=== PATIENT | female | born 1960 | race Caucasian/White ===

== ENCOUNTER 2016-11-28 09:59 | Emergency (ER) | payer SELFPAY ==
[~2016-11-28] VITALS: Ht 170.2 cm; Wt 115.0 kg
[~2016-11-28 09:59] MED LIST: Z.0.NO CURRENT MEDS
[2016-11-28 10:01] VITALS: BP 146/71; PULSE 81; RESP 18; TEMP 97.7; O2SAT 97
[2016-11-28] MEDS ORDERED: IBUP800T23 PO (10:35)
[2016-11-28] MEDS ORDERED: ROBA500T PO (10:35)
--- NOTE | 2016-11-28 10:35 | PD ---
HPI Chief Complaint: Back/ Neck Pain or Injury Time Seen by Provider: 10:32 Travel History International Travel<30 days: No Contact w/Intl Traveler<30days: No Traveled to known affect area: No History of Present Illness HPI 56-year-old female presents emergency Department with complaint of left upper back pain on and off for the past couple weeks. Denies injury. Says she's been moving, painting, lifting heavy objects. Denies IV drug use or cancer. Denies fever, vomiting. Denies chest pain, shortness of breath, abdominal pain. Pain is reproducible to the left upper trapezius muscle on palpation. She says the pain radiates from her left ear all the way down to her left toes. Pain is aggravated with movement of the left shoulder and twisting her neck. She has tried massage, topical muscle ointments, and other [id number] remedies for symptom management. Allergies to sulfa. Denies anticoagulant. Has no other medical complaints. No other modifying factors or associated signs and symptoms. PFSH Past Medical History Asthma: No Autoimmune Disease: No Anxiety: Yes COPD: No Diminished Hearing: No Gastrointestinal Disorders: Yes (COLITIS) Tetanus Vaccination: Unknown ?: Not Past Surgical History Cholecystectomy: Yes Social History Alcohol Use: No Tobacco Use: No Substance Use: No Allergies-Medications (Allergen,Severity, Reaction): Coded Allergies: Sulfa (Verified Allergy, Severe, 11/28/16) Reported Meds & Prescriptions Reported Meds & Active Scripts Active Ibuprofen 800 Mg Tab 800 Mg PO Q8H PRN Robaxin (Methocarbamol) 500 Mg Tab 500 Mg PO QID PRN Review of Systems Except as stated in HPI: all other systems reviewed are Neg Physical Exam Narrative GENERAL: Well-nourished, well-developed female patient, in no acute distress; afebrile, nontoxic-appearing SKIN: Warm and dry. HEAD: Atraumatic. Normocephalic. EYES: Pupils equal and round. No scleral icterus. No injection or drainage. ENT: Mucosa pink and moist. Airway patent. NECK: Supple, nontender. Trachea midline. No lymphadenopathy. Moving freely. No midline point tenderness on palpation of the cervical spine. Active rotation greater than 45 left and right. Reproducible tenderness to the left lateral musculature of the neck. CARDIOVASCULAR: Regular rate. RESPIRATORY: No accessory muscle use. GASTROINTESTINAL: Obese. MUSCULOSKELETAL: Left upper arm supple and non-tense 2+ radial pulses and sensory intact; full strength and shirt bander strength. Ambulatory in room with normal gait. Sitting up in bed at 90. No obvious deformities. No clubbing. No cyanosis. No edema. BACK: No midline midline point tenderness on palpation of the thoracic spine. Tenderness on palpation of left upper trapezius muscle area over the scapula. No obvious deformities. NEUROLOGICAL: Awake and alert. Oriented 3. No obvious cranial nerve deficits. Motor grossly within normal limits. Normal speech. Moves all extremities. 5/5 strength to all extremities. Sensory intact. PSYCHIATRIC: Appropriate mood and affect; insight and judgment normal. Data Data Last Documented VS Vital Signs Date Time Temp Pulse Resp B/P Pulse Ox O2 Delivery O2 Flow Rate FiO2 11/28/16 10:01 97.7 81 18 146/71 97 Room Air Orders Ketorolac Inj (Toradol Inj) (11/28/16 10:45) Orphenadrine Inj (Norflex Inj) (11/28/16 10:45) MDM Medical Decision Making Medical Screen Exam Complete: Yes Emergency Medical Condition: Yes Medical Record Reviewed: Yes Differential Diagnosis Muscle spasm, muscle strain, back pain Narrative Course 56-year-old female physical examination consistent with left trapezius muscle spasms and strain. Toradol and Norflex administered in the ER. Robaxin and ibuprofen prescribed for home. Instructed patient to follow up with primary care provider. Patient verbalizes understanding and agreement with treatment plan. Patient is medically cleared and stable for discharge. Discussed reasons to return to the emergency department. Patient agrees with treatment plan. The patients vital signs are stable and the patient is stable for outpatient follow-up and treatment. Patient discharged home, stable and in no acute distress. Diagnosis Primary Impression: Trapezius muscle spasm Additional Impression: Trapezius muscle strain Qualified Code: S46.812A - Trapezius muscle strain, left, initial encounter Referrals: Primary Care Physician Patient Instructions: General Instructions, Muscle Spasm (ED), Muscle Strain ( ED) Additional Instructions: Tylenol or ibuprofen as directed and as needed for pain Robaxin as prescribed and as needed for muscle spasms Heating pad and/or ice to affected area to reduce pain Avoid aggravating activities; increase activity as tolerated Follow-up with primary care provider Return to emergency department immediately with worsening of symptoms Med/Other Pt SpecificInfo: Prescription(s) given Scripts Ibuprofen 800 Mg [id number] Mg PO Q8H PRN (PAIN SCALE 1 TO 10) #30 TAB Ref 0 Prov:Azalia Giraldo 11/28/16 Methocarbamol (Robaxin)500 Mg [id number] Mg PO QID PRN (MUSCLE SPASM) #30 TAB Ref 0 Prov:Azalia Giraldo 11/28/16 Disposition: 01 DISCHARGE HOME Condition: Stable Azalia Giraldo Nov 28, 2016 10:35
[2016-11-28] MEDS ORDERED: KETOROLAC TROMETHAMINE 60 MG/2 ML (IM) VIAL IM ONE (10:45)
[2016-11-28] MEDS ORDERED: ORPHENADRINE INJ 60 MG/2 ML AMP IM ONE (10:45)
[2016-11-30] MEDS ORDERED: CYCL1TAB29 PO (14:14)
[2016-11-30] MEDS ORDERED: DICL1CAP3 PO (14:25)
[2016-12-01] MEDS ORDERED: KETO10 PO (08:17)
== END 2016-11-28 10:59 | disposition home or self-care (01) ==
LOC: NEPD 09:59
DX: S46.812A Strain of other muscles, fascia and tendons at shoulder and upper arm level, left arm, initial encounter (principal); M62.838 Other muscle spasm; X50.0XXA Overexertion from strenuous movement or load, initial encounter; X50.3XXA Overexertion from repetitive movements, initial encounter; Y99.9 Unspecified external cause status
CPT/HCPCS: 96372; 99284; J1885; J2360